=== PATIENT | female | born 1970 | race Two or more races ===

== ENCOUNTER 2017-08-14 15:07 | Emergency (ER) | payer OTHER ==
[~2017-08-14] VITALS: Ht 154.9 cm; Wt 61.7 kg
--- NOTE | 2017-08-14 15:10 | NUR ---
BIB FAMILY C/O HEADACHE SINCE WEDNESDAY S/P EPIDURAL INJECTION. A/OX 4, BREATHING EVEN AND UNLABORED. NO SOB, NAD, VITALS STABLE. SAFETY AND COMFORT MEASURES IN PLACE, AWAITING MD ORDERS.
--- NOTE | 2017-08-14 15:25 | NUR ---
NEW IV STARTED ON RAC, 18G.
[2017-08-14] MEDS ORDERED: IV NS 0.9% 1,000 ML BAG IV ONE (15:30)
[2017-08-14] MEDS ORDERED: METOCLOPRAMIDE HCL 10 MG/2 ML VIAL IV ONE (15:30)
[2017-08-14] MEDS ORDERED: diphenhydrAMINE HCL 50 MG/ML VIAL IV ONE (15:30)
[2017-08-14] MEDS ORDERED: KETOROLAC TROMETHAMINE INJ 30 MG/ML VIAL IV ONE (15:30)
--- NOTE | 2017-08-14 15:30 | NUR ---
URINE OBTAINED AND SENT TO LAB.
[2017-08-14] MEDS ORDERED: METOCLOPRAMIDE HCL 10 MG/2 ML VIAL ONE (15:42)
[2017-08-14] MEDS ORDERED: diphenhydrAMINE HCL 50 MG/ML VIAL ONE (15:42)
[2017-08-14] MEDS ORDERED: KETOROLAC TROMETHAMINE INJ 30 MG/ML VIAL ONE (15:42)
--- NOTE | 2017-08-14 16:02 | NUR ---
PATIENT MEDICATED PER MD ORDERS.
[2017-08-14 17:07] VITALS: BP 132/76
--- NOTE | 2017-08-14 17:08 | NUR ---
IV removed. Catheter intact and site benign. Pressure and 4x4 applied to site. No bleeding noted. Patient discharged to home in stable condition. Written and verbal after care instructions given. Patient verbalizes understanding of instruction.
== END 2017-08-14 17:07 | disposition home or self-care (01) ==
LOC: ER 15:11
DX: R51 Headache (principal); G89.29 Other chronic pain
CPT/HCPCS: 84703; 96374; 96375; 99284; A4606; J1200; J1885; J2765; J7030; Z7610

== ENCOUNTER 2017-08-16 13:01 | Emergency (ER) | payer OTHER ==
[~2017-08-16] VITALS: Ht 162.6 cm; Wt 59.9 kg
--- NOTE | 2017-08-16 13:02 | NUR ---
C/O N/V SINCE LAST NIGHT, SEVERE HEADACHE. H/O "SMALL BRAIN TUMOR" ACCDG TO FAMILY MEMBER, PT IS [facility] COMPLAINING OF FEELING WEAKNESS. NAD VSS RR EVEN AND UNLABORED. ASSISTED TO ED BED 02
[2017-08-16] MEDS ORDERED: diphenhydrAMINE HCL 50 MG/ML VIAL IV ONE (14:00)
[2017-08-16] MEDS ORDERED: KETOROLAC TROMETHAMINE INJ 30 MG/ML VIAL IV ONE (14:00)
[2017-08-16] MEDS ORDERED: PROCHLORPERAZINE EDISYLATE 10 MG/2 ML VIAL IV ONE (14:00)
[2017-08-16] MEDS ORDERED: diphenhydrAMINE HCL 50 MG/ML VIAL ONE (14:13)
[2017-08-16] MEDS ORDERED: KETOROLAC TROMETHAMINE INJ 30 MG/ML VIAL ONE (14:15)
[2017-08-16] MEDS ORDERED: PROCHLORPERAZINE EDISYLATE 10 MG/2 ML VIAL ONE (14:15)
--- NOTE | 2017-08-16 14:27 | NUR ---
PT TAKEN TO CT.
[2017-08-16] MEDS ORDERED: ONDANSETRON HCL/PF 4 MG/2 ML VIAL IV ONE (14:30)
[2017-08-16] MEDS ORDERED: ONDANSETRON HCL/PF 4 MG/2 ML VIAL ONE (14:41)
--- NOTE | 2017-08-16 15:14 | NUR ---
CALLED DR RODOLFO DOUGLAS @ , LEFT VOICEMAIL.
--- NOTE | 2017-08-16 16:15 | NUR ---
IV removed. Catheter intact and site benign. Pressure and 4x4 applied to site. No bleeding noted.
--- NOTE | 2017-08-16 16:15 | NUR ---
Patient discharged to home in stable condition. Written and verbal after care instructions given. Patient verbalizes understanding of instruction.
[2017-08-16 16:16] VITALS: BP 110/64
== END 2017-08-16 16:17 | disposition home or self-care (01) ==
LOC: ER 13:05
DX: G97.1 Other reaction to spinal and lumbar puncture (principal); G89.29 Other chronic pain
CPT/HCPCS: 70450-TC; A4606; J0780; J1200; J1885; J2405; Z7610